=== PATIENT | female | born 1975 | race Caucasian/White ===

== ENCOUNTER 2023-05-18 09:55 | Emergency (ER) | payer OTHER ==
[~2023-05-18] VITALS: Ht 160 cm; Wt 70.3 kg
[~2023-05-18 09:55] MED LIST: AMOCLA500 PO; CLIN300 PO; NAPR500 PO; OXYACE5T PO
[2023-05-18 10:22] VITALS: BP 154/91
== END 2023-05-18 12:34 | disposition home or self-care (01) ==
LOC: ER 09:55
DX: M25.562 Pain in left knee (principal); M25.561 Pain in right knee; W01.0XXA Fall on same level from slipping, tripping and stumbling without subsequent striking against object, initial encounter; Z88.0 Allergy status to penicillin; Z79.899 Other long term (current) drug therapy
CPT/HCPCS: 73562-LT; 99283-25